=== PATIENT | female | born 1995 | race African-American/Black ===

== ENCOUNTER 2020-07-31 16:24 | Emergency (ER) | payer OTHER ==
[~2020-07-31] VITALS: Ht 175.3 cm; Wt 81.2 kg
[2020-07-31] MEDS ORDERED: BUPRENORPHN-NA1 EACH PO (17:58)
[2020-07-31] MEDS ORDERED: CYCLOBENZAPRINE5 MG PO (18:00)
[2020-07-31 18:11] VITALS: BP 127/82
[2020-08-01] MEDS ORDERED: PREDNISONE 10 M10 MG PO (16:05)
== END 2020-07-31 18:11 | disposition home or self-care (01) ==
LOC: ER 16:24
DX: S16.1XXA Strain of muscle, fascia and tendon at neck level, initial encounter (principal); S39.012A Strain of muscle, fascia and tendon of lower back, initial encounter; Z90.49 Acquired absence of other specified parts of digestive tract; Z79.899 Other long term (current) drug therapy; Z88.8 Allergy status to other drugs, medicaments and biological substances; V43.52XA Car driver injured in collision with other type car in traffic accident, initial encounter; Y93.89 Activity, other specified; Y92.89 Other specified places as the place of occurrence of the external cause; Y99.8 Other external cause status

== ENCOUNTER 2020-07-31 18:44 | Inpatient (IN) | payer OTHER ==
[~2020-07-31] VITALS: Ht 175.3 cm; Wt 89.4 kg
[~2020-07-31 18:44] MED LIST: BUPRENORPHN-NA1 EACH PO; CYCLOBENZAPRINE5 MG PO
[2020-07-31 18:53] VITALS: BP 147/83
--- NOTE | 2020-07-31 19:27 | NUR ---
SHIN CHAMBERS ADDED NSAIDS/TORDAL TO ALLERGY LIST @ ~1909
[2020-07-31 22:44] VITALS: BP 133/66
[2020-07-31 23:03] VITALS: BP 128/85
[2020-07-31 23:30] VITALS: BP 125/70
[2020-07-31 23:45] VITALS: BP 115/69
[2020-08-01] VITALS (18 sets, daily range): BP systolic 106–136; BP diastolic 57–81
[2020-08-01 00:25] LABS: HEMATOCRIT 37.3 % (37.0-47.0); HEMOGLOBIN 12.3 gm/dL (12.0-15.0); MCH 27.6 pg (26.0-34.0); MCHC 32.9 g/dL (28.0-37.0); MCV 83.9 fL (80.0-100.0); RBC 4.45 mil/uL (4.20-5.00); RDW 14.7 % (10.5-14.5); WBC 8.5 thou/uL (4.0-11.0)
[2020-08-01 00:29] LABS: CALCIUM 8.5 mg/dL (8.5-10.1); CREATININE 0.7 mg/dL (0.6-1.0)
[2020-08-01 00:35] LABS: ALBUMIN 3.4 g/dL (3.4-5.0); TOTAL BILIRUBIN 0.1 mg/dL (0.2-1.0); TOTAL PROTEIN 7.9 g/dL (6.4-8.2)
--- NOTE | 2020-08-01 08:19 | NUR ---
PT FACIAL AND EYE SWELLING IMPROVED AFTER 0300 DOSE OF BENADRYL AND SOLUMEDROL. PT STATES SWALLOWING OK, DOES FEEL TINGLING ON SM AREA TOP OF MOUTH. UP TO BR WITH STANDBY ASSIST-GAIT STEADY. SHI PO FLUIDS. CONT PLAN OF CARE. PROGRESSING TOWARDS GOAL
--- NOTE | 2020-08-01 10:34 | NUR ---
PAGED DR. HOLLIS X 2 REGARDING POSSIBLE DISCHARGE HOME TODAY. DR. HOLLIS PRESENT AFTER SECOND PAGE. PT HAD WATER, APPLESAUCE AND CRACKERS, TOLERATED SWALLOWING. RN SPOKE WITH DEBBIE AT [facility] TO NOTIFY HER THAT CLAUDIA IS IN THE ICU AT [facility] AND IS UNABLE TO KEEP HER SCHEDULED TIME FOR MEDICATION ADMINISTRATION. MOTHER PRESENT, UPDATED.
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
--- NOTE | 2020-08-01 14:04 | NUR ---
chart review, pt remains on vent with tpn for nutritional support. pt from home and possible will need LTAC vs rehab depending on if he gets extubated or gets a trach and peg. cm called son yasmeen, no answer, and left message requested a call back. will cont following as needed for dc needs.
[2020-08-01] MEDS ORDERED: PREDNISONE 10 M10 MG PO (16:05)
--- NOTE | 2020-08-01 16:47 | NUR ---
after talking back and forth with Dr. Hassan and providing updates (condition remains the same, tolerating regular diet), discharge instructions and prednisone information given, verbalized understanding. 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 discharged to car per wheelchair with her mother driving.
== END 2020-08-01 16:47 | disposition home or self-care (01) | DRG 916 ==
LOC: ER 18:44 → ICU 21:14 → EROBS 21:14 → ICU 23:05
PROVIDERS: Emergency Medicine; ADMIT Hospitalist; ATTEND Hospitalist
DX: T78.3XXA Angioneurotic edema, initial encounter (principal); M54.2 Cervicalgia; M54.9 Dorsalgia, unspecified; T39.8X5A Adverse effect of other nonopioid analgesics and antipyretics, not elsewhere classified, initial encounter; Y92.89 Other specified places as the place of occurrence of the external cause; Z79.899 Other long term (current) drug therapy; Z88.8 Allergy status to other drugs, medicaments and biological substances; Z87.891 Personal history of nicotine dependence; Z90.49 Acquired absence of other specified parts of digestive tract
CPT/HCPCS: 10078